=== PATIENT | female | born 1975 | race Caucasian/White ===

== ENCOUNTER 2018-05-13 19:07 | Emergency (ER) | payer OTHER ==
[2018-05-13 19:30] VITALS: BP 110/63
--- NOTE | 2018-05-13 19:47 | ED ---
Skin Complaint - HPI Summary HPI Summary: 43 yr old female with the complaint of rash to right anterior ankle. She was walking in weeds last weekend, and began to get rash, some blistering and then worsening over the past three days. She put high potency steroid on the are this morning due to the itching, and it made the area get darker in color. No fever or chills. No Pain weight bearing. - History of Current Complaint Chief Complaint: UCSkin Time Seen by Provider: 05/13/18 19:32 Stated Complaint: RT ANKLE CONCERN Hx Last Menstrual Period: 05/04/18 Pain Intensity: 5 - Allergy/Home Medications Allergies/Adverse Reactions: Allergies Allergy/AdvReac Type Severity Reaction Status Date / Time No Known Allergies Allergy Verified 05/13/18 19:20 PMH/Surg Hx/FS Hx/Imm Hx Endocrine/Hematology History: Reports: Hx Anticoagulant Therapy Denies: Hx Diabetes, Hx Thyroid Disease Cardiovascular History: Denies: Hx Congestive Heart Failure, Hx Deep Vein Thrombosis, Hx Hypertension , Hx Myocardial Infarction, Hx Pacemaker/ICD Respiratory History: Denies: Hx Asthma, Hx Chronic Obstructive Pulmonary Disease (COPD), Hx Lung Cancer, Hx Pneumonia, Hx Pulmonary Embolism GI History: Denies: Hx Gall Bladder Disease, Hx Gastrointestinal Bleed, Hx Ulcer, Hx Urosepsis History: Denies: Hx Kidney Stones, Hx Renal Disease Sensory History: Reports: Hx Contacts or Glasses - GLASSES Denies: Hx Hearing Aid Opthamlomology History: Reports: Hx Contacts or Glasses - GLASSES Neurological History: Denies: Hx Dementia, Hx Migraine, Hx Seizures, Hx Transient Ischemic Attacks (TIA) Psychiatric History: Reports: Hx Anxiety - HX OF, Hx Depression - HX OF Denies: Hx Panic Disorder, Hx Schizophrenia, Hx Bipolar Disorder - Cancer History Hx Chemotherapy: No Hx Radiation Therapy: No - Surgical History Surgery Procedure, Year, and Place: Jul 2007 . November 2004 . 2000 lt knee scope. 1989 T+A A CHILD. 1978 BMT X2 A CHILD, C-SPINE SURGERY 12/2015 Hx Anesthesia Reactions: No Infectious Disease History: No Infectious Disease History: Denies: Hx Hepatitis, Hx Human Immunodeficiency Virus (HIV), Traveled Outside the [place] in Last 30 Days - Family History Known Family History: Positive: Hypertension Negative: Cardiac Disease, Diabetes - Social History Occupation: Employed Full-time Lives: With Family Alcohol Use: Occasionally Substance Use Type: Reports: None Smoking Status (MU): Former Smoker Length of Time of Smoking/Using Tobacco: 50 YRS Have You Smoked in the Last Year: No Review of Systems Constitutional: Negative Positive: Rash All Other Systems Reviewed And Are Negative: Yes Physical Exam Triage Information Reviewed: Yes Vital Signs On Initial Exam: Initial Vitals Temp Pulse Resp BP Pulse Ox 97.8 F 68 18 110/63 99 05/13/18 19:23 05/13/18 19:23 05/13/18 19:23 05/13/18 19:23 05/13/18 19:23 Vital Signs Reviewed: Yes Appearance: Positive: Well-Appearing, No Pain Distress Skin: Positive: Other - wheeping, blistering rash anterior right ankle. Feet appear symmetric and ankles also in size. No joint effusion. She has hyperpigmentation of skin over the area of blister, but no cellulitis. No pus. Head/Face: Positive: Normal Head/Face Inspection Eyes: Positive: EOMI ENT: Positive: Normal ENT inspection Respiratory/Lung Sounds: Positive: Other - normal effort Cardiovascular: Positive: Pulses are Symmetrical in both Upper and Lower Extremities - DP pulse Abdomen Description: Negative: Distended Musculoskeletal: Positive: Strength/ROM Intact Neurological: Positive: Sensory/Motor Intact, Alert, Oriented to Person Place, Time, CN Intact II-III Psychiatric: Positive: Normal Diagnostics - Vital Signs Vital Signs Temp Pulse Resp BP Pulse Ox 05/13/18 19:23 97.8 F 68 18 110/63 99 - Laboratory Lab Statement: Any lab studies that have been ordered have been reviewed, and results considered in the medical decision making process. Course/Dx - Course Course Of Treatment: 43 yr old with allergic contact dermatitis. Plan medrol dose marc - Diagnoses Provider Diagnoses: Plant allergic contact dermatitis Discharge - Sign-Out/Discharge Documenting (check all that apply): Patient Departure All imaging exams completed and their final reports reviewed: No Studies - Discharge Plan Condition: Good Disposition: HOME Prescriptions: methylPREDNISolone [Medrol] 4 mg PO .SEE MARC INSTRUCTION #1 [id number] Patient Education Materials: Contact Dermatitis (ED), Poison Christal (ED) Referrals: Jessica Hoffman NP [Primary Care Provider] - 4 Days - Billing Disposition and Condition Condition: GOOD Disposition: Home
== END 2018-05-13 19:49 | disposition home or self-care (01) ==
LOC: UCCORT 19:07
DX: R51 Headache (principal); R11.2 Nausea with vomiting, unspecified; R50.9 Fever, unspecified
CPT/HCPCS: 99212; G0463

== ENCOUNTER 2019-07-25 08:46 | Emergency (ER) | payer OTHER ==
--- NOTE | 2019-07-25 09:15 | ED ---
Abdominal Pain/Female - HPI Summary HPI Summary: 44-year-old female with no significant past medical history presents to the emergency department today with chief complaint of rectal bleeding. She states she's had abdominal pain for months but her abdominal pain has gotten significantly worse in the last few days. She stated yesterday she started noticing bright red blood per rectum with 7 out of 10 abdominal pain. She states the pain is diffuse and all over her abdomen. She states she also noticed pus in her stool but reports no blood on the bathroom tissue with wiping after defecation. She states she's had about 10 bouts of diarrhea over the last 2 days and reports early satiety. Patient dorsal pain with defecation in the abdomen rather than the rectum. She denies any personal or family history of inflammatory bowel disease such as Crohn's or colitis, colorectal cancer, diverticulosis/diverticulitis. She does not take any blood thinners and has not complained of any lightheadedness, dizziness, chest pain, shortness breath, pain with urination. Patient denies fever or recent illness. Patient denies any identifiable precipitating factor. - History of Current Complaint Chief Complaint: EDGIBleed Stated Complaint: ABD PAIN/BLOOD IN STOOL PERPT Time Seen by Provider: 07/25/19 09:15 Hx Obtained From: Patient Hx Last Menstrual Period: 05/04/18 ?: No Onset/Duration: Gradual Onset, Lasting Days Timing: Constant Severity Initially: Moderate Severity Currently: Moderate Pain Intensity: 5 Pain Scale Used: 0-10 Numeric Location: Diffuse Radiates: No Character: Cramping Aggravating Factor(s): Food, Movement Associated Signs and Symptoms: Positive: Blood in Stool, Diarrhea. Negative: Diaphoresis, Fever, Chest Pain, Constipation, Urinary Symptoms, Vaginal Bleeding , Nausea, Vomiting Allergies/Adverse Reactions: Allergies Allergy/AdvReac Type Severity Reaction Status Date / Time No Known Allergies Allergy Verified 07/25/19 08:52 Home Medications: Home Medications Famotidine TAB* [Pepcid 20 MG TAB*] 20 mg PO BID 07/25/19 [History Confirmed 08/31] Naproxen Sodium [Aleve] 440 mg PO DAILY PRN 07/25/19 [History Confirmed 07/25/19 ] Norethindrone-Ethinyl Estrad [Ortho-Novum 7-7-7-28 Tablet] 1 each PO DAILY 07/25 [History Confirmed 07/25/19] PMH/Surg Hx/FS Hx/Imm Hx Endocrine/Hematology History: Reports: Hx Anticoagulant Therapy Denies: Hx Diabetes, Hx Thyroid Disease Cardiovascular History: Denies: Hx Congestive Heart Failure, Hx Deep Vein Thrombosis, Hx Hypertension , Hx Myocardial Infarction, Hx Pacemaker/ICD Respiratory History: Denies: Hx Asthma, Hx Chronic Obstructive Pulmonary Disease (COPD), Hx Lung Cancer, Hx Pneumonia, Hx Pulmonary Embolism GI History: Denies: Hx Gall Bladder Disease, Hx Gastrointestinal Bleed, Hx Ulcer, Hx Urosepsis History: Denies: Hx Kidney Stones, Hx Renal Disease Sensory History: Reports: Hx Contacts or Glasses - GLASSES Opthamlomology History: Reports: Hx Contacts or Glasses - GLASSES Neurological History: Denies: Hx Dementia, Hx Migraine, Hx Seizures, Hx Transient Ischemic Attacks (TIA) Psychiatric History: Reports: Hx Anxiety - HX OF, Hx Depression - HX OF Denies: Hx Panic Disorder, Hx Schizophrenia, Hx Bipolar Disorder - Cancer History Hx Chemotherapy: No Hx Radiation Therapy: No - Surgical History Surgery Procedure, Year, and Place: Jul 2007 . November 2004 . 2000 lt knee scope. 1989 T+A A CHILD. 1978 BMT X2 A CHILD, C-SPINE SURGERY 12/2015 Hx Anesthesia Reactions: No Infectious Disease History: No Infectious Disease History: Denies: Hx Hepatitis, Hx Human Immunodeficiency Virus (HIV), Traveled Outside the [place] in Last 30 Days - Family History Known Family History: Positive: Hypertension Negative: Cardiac Disease, Diabetes - Social History Alcohol Use: Occasionally Substance Use Type: Reports: None Smoking Status (MU): Former Smoker Length of Time of Smoking/Using Tobacco: 50 YRS Have You Smoked in the Last Year: No Review of Systems Constitutional: Negative Cardiovascular: Negative Respiratory: Negative Positive: Abdominal Pain. Negative: Vomiting, Diarrhea, Nausea Negative: burning, dysuria, flank pain, hematuria, pain Negative: Rash Psychological: Normal All Other Systems Reviewed And Are Negative: Yes Physical Exam Triage Information Reviewed: Yes Vital Signs On Initial Exam: Initial Vitals Temp Pulse Resp BP Pulse Ox 97.2 F 76 16 123/79 99 07/25/19 08:48 07/25/19 08:48 07/25/19 08:48 07/25/19 08:48 07/25/19 08:48 Vital Signs Reviewed: Yes Appearance: Positive: Well-Appearing, No Pain Distress, Well-Nourished, Obese Skin: Positive: Warm, Skin Color Reflects Adequate Perfusion Head/Face: Positive: Normal Head/Face Inspection Eyes: Positive: Normal, EOMI ENT: Positive: Hearing grossly normal Respiratory/Lung Sounds: Positive: Clear to Auscultation, Breath Sounds Present Cardiovascular: Positive: Normal, RRR, S1, S2 Abdomen Description: Positive: Soft, Other: - Patient has no visual signs of mass or ecchymosis to the abdomen. Patient has pain throughout the abdomen with palpation. Auscultation revealed normoactive bowel sounds. Negative psoas , Rovsing, obturator sign. No rebound tenderness at McBurney's point.. Negative: Nontender, CVA Tenderness (R), CVA Tenderness (L), Distended, Guarding , McBurney's Point Tenderness, Peritoneal Signs Psychiatric: Positive: Normal AVPU Assessment: Alert Procedures - Sedation Patient Received Moderate/Deep Sedation with Procedure: No Diagnostics - Vital Signs Vital Signs Temp Pulse Resp BP Pulse Ox 07/25/19 08:48 97.2 F 76 16 123/79 99 - Laboratory Result Diagrams: 07/25/19 09:51 07/25/19 09:47 Lab Statement: Any lab studies that have been ordered have been reviewed, and results considered in the medical decision making process. Abdominal Pain Fem Course/Dx - Course Course Of Treatment: 44-year-old female with no significant past medical history was evaluated in the emergency department today for the diarrhea. The patient was seen and examined. Laboratory studies and a CT with IV contrast was ordered for the abdomen and pelvis. Laboratory studies returned showing hemoglobin and hematocrit returned as 14.6 and 42 respectively. She has a platelet count of 160. Her labs indicate she is hemodynamically stable. A C-reactive protein returned at 9.27 which is elevated and this is expected due to her colitis. Coagulation studies were within normal limits and show the patient is at no increased risk of bleeding.CT of the abdomen and pelvis with IV contrast returned showing evidence of colonic inflammation suggestive of colitis. During her stay she was given 1 L of lactated Ringers. At around 12:00 PM the patient began developing increased pain and was given 650 mg of acetaminophen and she declined narcotic pain medication. 30 minutes after being given Tylenol patient endorses feeling much better and agrees to discharge. The patient was unable to produce a stool culture to be sent for analysis. She'll follow-up with gastroenterology in 2-3 days for further evaluation of her symptoms. She was discharged home with ciprofloxacin and metronidazole for possible bacterial colitis as well as tramadol to for 2 days for pain. - Diagnoses Differential Diagnosis: Positive: Appendicitis, Constipation, Diverticulitis, Gall Bladder Disease, Irritable Bowel Syndrome, Pancreatitis, Peptic Ulcer Disease, Other - Crohn's, colitis, infectious colitis Provider Diagnoses: Colitis Discharge ED - Sign-Out/Discharge Documenting (check all that apply): Patient Departure - Discharge Plan Condition: Stable Disposition: HOME Prescriptions: Ciprofloxacin TAB* [Cipro 500 MG TAB*] 500 mg PO BID #14 tab metroNIDAZOLE * [Flagyl] 500 mg PO BID #14 tablet traMADol TAB* [Ultram*] 50 mg PO Q6HR PRN #8 tab MDD 4 tabs PRN Reason: Pain Patient Education Materials: Low Fiber Diet (ED), Colitis (ED) Forms: *Work Release Referrals: Luci Rivers MD [Medical Doctor] - Jessica Hoffman NP [Primary Care Provider] - Zeynep JONES,Misyt Morris NP [Nurse Practitioner] - 2 Days Additional Instructions: You were seen in the emergency department today for colitis. Stool cultures were sent and you will be notified if these come back positive for bacteria. You will be sent home with a prescription for 2 antibiotics to be taken twice a day for 7 days to cover the possibility of bacterial origin. For relief of symptoms please stick to a low fiber diet until you were evaluated by gastroenterology. You should follow-up with a box car bracer for further evaluation and management of your symptoms. If You develop any new or worsening symptoms please return to the emergency Department immediately. Return to activity as tolerated. - Billing Disposition and Condition Condition: STABLE Disposition: Home - Attestation Statements Provider Attestation: I was available for consult. This patient was seen by the JEANETTE. The patient was not presented to, seen by, or examined by me. -Boo
[2019-07-25] MEDS ORDERED: Pantoprazole IV* 40 MG IV ONE (09:37)
[2019-07-25 09:58] LABS: Urine Appearance Clear; Urine Bacteria Absent (Absent); Urine Bilirubin Negative (Negative); Urine Blood 2+ (Negative); Urine Color Yellow; Urine Glucose Negative (Negative); Urine Ketones Negative (Negative); Urine Nitrite Negative (Negative); Urine Protein Negative (Negative); Urine Red Blood Cell 1+(3-5/hpf) (Absent); Urine Specific Gravity 1.015 (1.010-1.030); Urine Squamous Epithelial Cell Present (Absent); Urine Urobilinogen Negative (Negative); Urine White Blood Cell Trace(0-5/hpf) (Absent)
[2019-07-25 10:00] LABS: ABS Eosinophils 0.1 10^3/ul (0-0.6); ABS Lymphocytes 1.7 10^3/ul (1.0-4.8); ABS Monocytes 0.6 10^3/ul (0-0.8); ABS Neutrophils 3.8 10^3/ul (1.5-7.7); Eosinophil % 1.1 %; Hematocrit 42 % (35-47); Hemoglobin 14.6 g/dL (12.0-16.0); Lymphocyte % 27.2 %; Mean Corpuscular HGB Conc 35 g/dL (31-36); Mean Corpuscular Hemoglobin 33 pg (27-31); Mean Corpuscular Volume 94 fL (80-97); Mean Platelet Volume 8.8 fL (7.4-10.4); Nucleated Red Blood Cells % 0.1; Platelet Count 160 10^3/uL (150-450); Red Blood Count 4.45 10^6 /uL (3.70-4.87); Red Cell Distribution Width 13 % (10-15); White Blood Count 6.2 10^3/uL (3.5-10.8)
[2019-07-25] MEDS ORDERED: Lactated Ringers 1000 ML Bag* 1,000 ML IV SCH ×2 (10:00)
[2019-07-25 10:08] LABS: Activated Partial Thrombo Time 32.8 seconds (26.0-38.0); INR 0.99 (0.82-1.09)
[2019-07-25 10:19] LABS: ALT 10 U/L (7-52); AST 11 U/L (13-39); Albumin/Globulin Ratio 1.8 (1-3); Alkaline Phosphatase 33 U/L (34-104); Anion Gap 5 mmol/L (2-11); BUN/Creatinine Ratio 8.5 (8-20); Blood Urea Nitrogen 7 mg/dL (6-24); C Reactive Protein 9.27 mg/L (<8.01); CO2 Carbon Dioxide 26 mmol/L (22-32); Calcium 9.2 mg/dL (8.6-10.3); Chloride 109 mmol/L (101-111); EGFR African American 91.6 (>60); EGFR Non-African American 75.7 (>60); Globulin 2.2 g/dL (2-4); Glucose 113 mg/dL (70-100); Potassium 4.8 mmol/L (3.5-5.0); Sodium 140 mmol/L (135-145); Total Protein 6.2 g/dL (6.4-8.9)
--- OUTSIDE RECORDS SUMMARY | 2019-07-25 10:32 | XMS REPORT | Continuity of Care Document ---
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 Medicine Problems Active Problems Provider Date Anxiety state Rachel Ocasio M.D., FACP Onset: 06/01/2011 Social History Type Date Description Comments Sex Unknown ETOH Use Drinks 2 Alcoholic Beverages Per Week Tobacco Use Start: Unknown End: Patient is a former quit 04/25 Document: Unknown smoker 06/23/13 - .Nurse Note Recreational Drug Use Denies Drug Use Smoking Status Reviewed: 07/24/19 Patient is a former quit 04/25 Document: smoker 06/23/13 - .Nurse Note Allergies, Adverse Reactions, Alerts Active Allergies Reaction Severity Comments Date No Known Drug Allergy 06/17/2010 Medications Active Medications SIG Qnty Indications Ordering Provider Date Famotidine 1 by mouth twice 30tabs R10.84 Jessica Hoffman, 07/24/2019 20mg Tablets a day N.P. Ortho-Cept (28) 1 by mouth every 28tabs Jessica Hoffman, 09/25/2015 day N.P. 0.15-30mg-mcg Tablets Aleve 2 by mouth a day Unknown 220mg Capsules as needed Immunizations CPT Code Status Date Vaccine Lot # [id number] Given 05/26/2018 Influenza Virus Vaccine, Quadrivalent, Split, Preservative Free [id number] Given 06/23/2013 Flu Vaccine Split Virus Preservative Free For [id number] Indiv 3Yr Older [id number] Given 06/18/2010 Influenza Virus 3Yrs & Over Vital Signs Date Vital Result Comment 07/24/2019 2:13pm Height 69 inches 5'9" Weight 221.12 lb Heart Rate 66 /min BP Systolic 124 mmHg BP Diastolic 70 mmHg Body Temperature 98.4 F O2 % BldC Oximetry 96 % BMI (Body Mass Index) 32.7 kg/m2 10/04/2018 2:30pm Height 69 inches 5'9" Weight 23.50 lb Heart Rate 67 /min BP Systolic 121 mmHg BP Diastolic 79 mmHg Body Temperature 97.9 F O2 % BldC Oximetry 97 % BMI (Body Mass Index) 3.5 kg/m2 Results Description No Information Available Procedures Date Code Description Status 11/02/2018 [id number] Mammogram Completed 12/24/2016 [id number] Mammogram Completed 04/30/2016 [id number] Mammogram Completed 10/11/2015 [id number] Mammogram Completed Medical Devices Description No Information Available Encounters Description No Information Available Assessments Date Code Description Provider 07/24/2019 R10.84 Generalized abdominal pain Jessica Hoffman N.P. Plan of Treatment Future Appointment(s):10/06/2019 2:20 pm - Jessica Hoffman N.P. at [facility] Internal Medicine - [facility]07/24/2019 - Jessica Hoffman N.P.R10.84 Generalized abdominal painNew Medication:Famotidine 20 mg - 1 by mouth twice a dayComments:You are having symptoms consistent with reflux disease. I have prescribed Famotidine 20 mg. Take 1 tablet twice daily. Avoid acidic, greasy, and spicy foods. Coffee and alcohol are irritants as well. 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 Sent Referred for evaluation and treatment. Thank you for seeing this pleasant patient. [address] [place] [address] [phone]
[2019-07-25] MEDS ORDERED: Iohexol 300* (CONTRAST) 10 ML SDV IV ONE (10:56)
[2019-07-25] MEDS ORDERED: Acetaminophen TAB* 325 MG PO ONE (12:03)
[2019-07-25 14:08] VITALS: BP 128/85
== END 2019-07-25 14:00 | disposition home or self-care (01) ==
LOC: ED 08:46
DX: K52.9 Noninfective gastroenteritis and colitis, unspecified (principal); R10.84 Generalized abdominal pain; Z79.01 Long term (current) use of anticoagulants; Z87.891 Personal history of nicotine dependence
CPT/HCPCS: 36415; 74177; 80053; 81003; 81015; 82272; 83605; 83690; 83735; 85025; 85610; 85730; 86140; 87086; 96361; 96374; 99283; A9270-GY; Q9967

== ENCOUNTER 2019-07-31 18:20 | Emergency (ER) | payer OTHER ==
--- OUTSIDE RECORDS SUMMARY | 2019-07-31 18:32 | XMS REPORT | Continuity of Care Document ---
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 Allergies, Adverse Reactions, Alerts Active Allergies Reaction Severity Comments Date No Known Drug Allergy 06/17/2010 Medications Active Medications SIG Qnty Indications Ordering Provider Date Nortrel 7 Every Day Unknown 07/25/2019 0.5/0.75/1-35 mg-mcg Tablets Ciprofloxacin HCL Twice Daily 14tabs Unknown 07/25/2019 500mg Tablets Metronidazole Twice Daily 14tabs Unknown 07/25/2019 500mg Tablets Tramadol HCL Every 6 Hours 8tabs Unknown 07/25/2019 50mg Tablets Famotidine 1 by mouth 30tabs R10.84 Jessica Hoffman, 07/24/2019 20mg Tablets twice a day N.P. Immunizations CPT Code Status Date Vaccine Lot # [id number] Given 05/26/2018 Influenza Virus Vaccine, Quadrivalent, Split, Preservative Free 58267 Given 06/23/2013 Flu Vaccine Split Virus Preservative Free For [id number] Indiv 3Yr Older [id number] Given 06/18/2010 Influenza Virus 3Yrs & Over Vital Signs Date Vital Result Comment 07/26/2019 2:32pm Height 69 inches 5'9" Weight 220.00 lb Heart Rate 77 /min BP Systolic 117 mmHg BP Diastolic 75 mmHg O2 % BldC Oximetry 98 % BMI (Body Mass Index) 32.5 kg/m2 07/24/2019 2:13pm Height 69 inches 5'9" Weight 221.12 lb Heart Rate 66 /min BP Systolic 124 mmHg BP Diastolic 70 mmHg Body Temperature 98.4 F O2 % BldC Oximetry 96 % BMI (Body Mass Index) 32.7 kg/m2 Results Test Acquired Date Facility Test Result H/L Range Note Inr/Protime 07/25/2019 [facility] Inr 0.99 Normal 0.82-1.[address] [place] [address] [phone] Laboratory test 07/25/2019 [facility] Partial 32.8 Normal 26.0 -38.[address] [place] [address] PTT [phone] Lactic Acid 1.3 mmol/L Normal 0.5-2.0 2 Urinalysis Profile 07/25/2019 [facility] Urine Color Yellow [address] [place] [address] [phone] Urine Appearance Clear Urine Specific Gary 1.015 Normal 1.010-1.030 Urine pH 5.0 Normal 5-9 Urine Urobilinogen Negative Negative Urine Ketones Negative Negative Urine Protein Negative Negative Urine Leukocytes Trace Abnormal Negative Urine Blood 2+ Abnormal Negative Urine Nitrite Negative Negative Urine Bilirubin Negative Negative Urine Glucose Negative Negative Urine White Blood Cell Trace(0-5/hpf) Absent Urine Red Blood Cell 1+(3-5/hpf) Abnormal Absent Urine Bacteria Absent Absent Urine Squamous Epithelial Cell Present Abnormal Absent CBC Auto 07/25/2019 [facility] White Blood 6.2 10^3/uL Normal 3.5-10.[address] [place] [address] [phone] Red Blood Count 4.45 10^6/uL Normal 3.70-4.87 Hemoglobin 14.6 g/dL Normal 12.0-16.0 Hematocrit 42 % Normal 35-47 Mean Corpuscular Volume 94 fL Normal 80-97 Mean Corpuscular Hemoglobin 33 pg High 27-31 Mean Corpuscular HGB Conc 35 g/dL Normal 31-36 Red Cell Distribution Width 13 % Normal 10-15 Platelet Count 160 10^3/uL Normal 150-450 Mean Platelet Volume 8.8 fL Normal 7.4-10.4 Abs Neutrophils 3.8 10^3/uL Normal 1.5-7.7 Abs Lymphocytes 1.7 10^3/uL Normal 1.0-4.8 Abs Monocytes 0.6 10^3/uL Normal 0-0.8 Abs Eosinophils 0.1 10^3/uL Normal 0-0.6 Abs Basophils 0.0 10^3/uL Normal 0-0.2 Abs Nucleated RBC 0.0 10^3/uL Granulocyte % 60.9 % Lymphocyte % 27.2 % Monocyte % 10.3 % Eosinophil % 1.1 % Basophil % 0.5 % Nucleated Red Blood Cells % 0.1 Comp Metabolic 07/25/2019 [facility] Sodium 140 mmol/L Normal 135-145 Panel [address] [place] [address] [phone] Potassium 4.8 mmol/L Normal 3.5-5.0 Chloride 109 mmol/L Normal 101-111 Co2 Carbon Dioxide 26 mmol/L Normal 22-32 Anion Gap 5 mmol/L Normal 2-11 Glucose 113 mg/dL High 70-100 Blood Urea Nitrogen 7 mg/dL Normal 6-24 Creatinine 0.82 mg/dL Normal 0.51-0.95 BUN/Creatinine Ratio 8.5 Normal 8-20 Calcium 9.2 mg/dL Normal 8.6-10.3 Total Protein 6.2 g/dL Low 6.4-8.9 Albumin 4.0 g/dL Normal 3.2-5.2 Globulin 2.2 g/dL Normal 2-4 Albumin/Globulin Ratio 1.8 Normal 1-3 Total Bilirubin 0.30 mg/dL Normal 0.2-1.0 Alkaline Phosphatase 33 U/L Low 34-104 Alt 10 U/L Normal 7-52 Ast 11 U/L Low 13-39 Egfr Non- 75.7 >60 Egfr 91.6 >60 3 Laboratory test 07/25/2019 [facility] Magnesium 2.0 mg/dL Normal 1.9-2.7 finding [address] [place] [address] [phone] Lipase < 10 U/L Low 11.0-82.0 C Reactive Protein 9.27 mg/L High <8.01 Stool Occult Blood 07/25/2019 [facility] Stool Occult SEE RESULT [address] Blood, [place] [address] [phone] Urine Culture And 07/25/2019 [facility] Urine Culture SEE RESULT [address] [place] [address] [phone] 1 Standard intensity warfarin therapeutic range: 2.0-3.0 High intensity warfarin therapeutic range: 2.5-3.5 2 [place] Severe Sepsis and Septic Shock Management Bundle Measure requires all lactic acids initially measuring >2.0 mmol/L be repeated. 3 Because ethnic data is not always readily available, this report includes an eGFR for both -Americans and non- Americans. The National Kidney Disease Education Program (NKDEP) does not endorse the use of the MDRD equation for patients that are not between the ages of 18 and 70, are , have extremes of body size, muscle mass, or nutritional status, or are non- or non-. According to the National Kidney Foundation, irrespective of diagnosis, the stage of the disease is based on the level of kidney function: Stage Description GFR(mL/min/1.73 m(2)) 1 Kidney damage with normal or decreased GFR 90 2 Kidney damage with mild decrease in GFR 60-89 3 Moderate decrease in GFR 30-59 4 Severe decrease in GFR 15-29 5 Kidney failure <15 (or dialysis) 4 SEE RESULT BELOW Name: MAYELA SHANKS : [address]: Aleta Stafford MD Acct: [id number] Unit: [id number] AGE: 44 Location: ED Re07/25/19 SEX: F Status: DEP ER SPEC: [id number] AYALA: 07/25/[address] [facility] [address]: Alexsander WALSH REQ: [id number] RECD: 07/25/19 STATUS:ISAIAS PRADO DR: Aleta Hoffman ME[employer]SEM[employer]ER _ SOURCE: STOOL SPDESC: ORDERED: Occult Bl, Diag Procedure Result Reported Site Stool Occult Blood (1) Final 07/25/19- 1116 ML Stool Occult Blood Negative Collection Date (1) 07/25/19 NO "VISIBLE SPECIMEN" ON CARD SUBMITTED. * ML - Main Lab . END OF REPORT DEPARTMENT OF PATHOLOGY, [address] [place] [address] Lalit Thomas M.D. 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 END OF REPORT DEPARTMENT OF PATHOLOGY, [address] [place] [address] Lalit Thomas M.D. Director [facility] # [id number] Procedures Date Code Description Status 11/02/2018 [id number] Mammogram Completed 12/24/2016 [id number] Mammogram Completed 04/30/2016 [id number] Mammogram Completed 10/11/2015 [id number] Mammogram Completed Medical Devices Description No Information Available Encounters Description No Information Available Assessments Date Code Description Provider 07/24/2019 R10.84 Generalized abdominal pain Jessica Hoffman N.P. Plan of Treatment Future Appointment(s):08/15/2019 8:15 am - Misty Adhikari NP at [facility] Hkebfsaqemybzsok79/24/2020 2:20 pm - Jessica Hoffman NChucho at [facility] Internal Medicine - [facility]ob07/24/2019 - Jessica Hoffman NChuchoR10.84 Generalized abdominal painNew Medication:Famotidine 20 mg - [...] GI specialist for further evaluation.Referral:Misty Adhikari NP, Family/[employer]CH[employer]NCE ASSEMBLER Functional Status Description No Information Available Mental Status Description No Information Available Referrals Refer to Reason for Referral Status Appt Date Misty Adhikari NP Patient with abdominal pain, reflux and diarrhea. Sent Referred for evaluation and treatment. Thank you for seeing this pleasant patient. [address] [place] [address] [phone]
--- OUTSIDE RECORDS SUMMARY | 2019-07-31 18:32 | XMS REPORT | Continuity of Care Document ---
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 [phone] Medicine Problems Active Problems Provider Date Anxiety state Rachel Ocasio M.D., FACP Onset: 06/01/2011 Colitis Misty Adhikari NP Onset: 07/26/2019 Social History Type Date Description Comments Sex Unknown Tobacco Use Start: Unknown Former Cigarette Smoker End: Unknown Smoking Status Reviewed: 07/31/19 Former Cigarette Smoker ETOH Use Drinks Alcoholic [...] SIG Qnty Indications Ordering Provider Date Nortrel Every Day Unknown 07/25/2019 0.5/0.75/1-35 mg-mcg Tablets Ciprofloxacin HCL Twice Daily 14tabs Unknown 07/25/2019 500mg Tablets Metronidazole Twice Daily 14tabs Unknown 07/25/2019 500mg Tablets Tramadol HCL Every 6 Hours 8tabs Unknown 07/25/2019 50mg Tablets Famotidine 1 by mouth 30tabs R10.84 Jessica Hoffman, 07/24/2019 20mg Tablets twice a day N.P. Immunizations CPT Code Status Date Vaccine Lot # [id number] Given 05/26/2018 Influenza Virus Vaccine, Quadrivalent, Split, Preservative Free 54648 Given 06/23/2013 Flu Vaccine Split Virus Preservative Free For [id number] Indiv 3Yr Older 65533 Given 06/18/2010 Influenza Virus 3Yrs & Over Vital Signs Date Vital Result Comment 07/31/2019 2:02pm Height 69 inches 5'9" Weight 220.00 lb Heart Rate 75 /min BP Systolic 113 mmHg BP Diastolic 68 mmHg Body Temperature 97.5 F O2 % BldC Oximetry 97 % BMI (Body Mass Index) 32.5 kg/m2 07/26/2019 2:32pm Height 69 inches 5'9" Weight 220.00 lb Heart Rate 77 /min BP Systolic 117 mmHg BP Diastolic 75 mmHg O2 % BldC Oximetry 98 % BMI (Body Mass Index) 32.5 kg/m2 Results Test Acquired Date Facility Test Result H/L Range Note Inr/Protime 07/25/2019 [facility] Inr 0.99 Normal 0.82-1.[address] [place] [address] [phone] Laboratory test 07/25/2019 [facility] Partial 32.8 Normal 26.0 -38.[address] [address] PTT [phone] Lactic Acid 1.3 mmol/L Normal 0.5-2.0 2 Urinalysis Profile 07/25/2019 [facility] Urine Color Yellow [address] [place] [address] [phone] Urine Appearance Clear Urine Specific [place] 1.015 Normal 1.010-1.030 Urine pH 5.0 Normal [...] Cell Present Abnormal Absent CBC Auto 07/25/2019 [facility] White Blood 6.2 10^3/uL Normal 3.5-10.[address] [place] [address] [phone] Red Blood Count 4.45 10^6/uL Normal 3.70-4.87 [...] Blood Cells % 0.1 Comp Metabolic 07/25/2019 [facility] Sodium 140 mmol/L Normal 135-[address] [place] [id number] [phone] Potassium 4.8 mmol/L Normal 3.5-5.0 Chloride 109 [...] Egfr 91.6 >60 3 Laboratory test 07/25/2019 [facility] Magnesium 2.0 mg/dL Normal 1.9-2.[address] [place] [address] [phone] Lipase < 10 U/L Low 11.0-82.0 C Reactive Protein 9.27 mg/L High <8.01 Stool Occult Blood 07/25/2019 [facility] Stool Occult SEE RESULT [address] Blood, [place] [address] [phone] Urine Culture And 07/25/2019 [facility] Urine Culture SEE RESULT [address] [place] [address] [phone] 1 Standard intensity warfarin therapeutic range: 2.0-3.0 [...] [address]: Aleta Stafford MD Acct: [id number] Unit: [id number] AGE: 44 Location: ED Re07/25/19 SEX: F Status: DEP ER SPEC: [id number] AYALA: 07/25/19 [facility] DR: Alexsander WALSH REQ: [id number] RECD: 07/25/19 STATUS:ISAIAS PRADO DR: Aleta Hoffman [employer] _ SOURCE: STOOL SPDESC: ORDERED: Occult Bl, Diag Procedure Result Reported Site Stool Occult Blood (1) Final 07/25/19- 1116 ML Stool Occult Blood Negative Collection Date (1) 07/25/19 NO "VISIBLE SPECIMEN" ON CARD SUBMITTED. * ML - Main Lab . END OF REPORT DEPARTMENT OF PATHOLOGY, [address] [place] [address] Lalit Thomas M.D. Director [facility] # [id number] 5 SEE RESULT BELOW Name: MAYELA SHANKS : [address]: Aleta Stafford MD Acct: [id number] Unit: [id number] AGE: 44 Location: ED Re07/25/19 SEX: F Status: DEP ER SPEC: [id number] AYALA: 07/25/[address]: Alexsander WALSH REQ: [id number] RECD: 07/25/19 STATUS:COMP OTHR DR: Aleta Hoffman [employer] _ SOURCE: URINE SPDESC: ORDERED: Urine Culture Procedure Result Reported Site Urine Culture Final 07/26/19- 0858 ML No growth of clinically significant organisms * ML - Main Lab . END OF REPORT DEPARTMENT OF PATHOLOGY, [address] [place] [address] Lalit Thomas M.D. Director [facility] # [id number] Procedures Date Code Description Status 11/02/2018 [id number] Mammogram Completed 12/24/2016 [id number] Mammogram Completed 04/30/2016 [id number] Mammogram Completed 10/11/2015 [id number] Mammogram Completed Medical Devices Description No Information Available Encounters Type Date Location Provider Dx Diagnosis Office Visit 07/24/2019 [facility] Internal Jessica Hoffman, R10.84 Generalized 2:00p Medicine - [facility] N.P. 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 Plan of Treatment Future Appointment(s):08/15/2019 8:15 am - Misty Adhikari NP at [facility] Rpmftjncchjxtnkn15/24/2020 2:20 pm - Jessica Hoffman N.P. at [facility] Internal Medicine - [facility] Functional Status Description No Information Available Mental Status Description No Information Available Referrals Refer to Reason for Referral Status Appt Misty Claudio NP Patient with abdominal pain, reflux and diarrhea. Sent Referred for evaluation and treatment. Thank you for seeing this pleasant patient. [address] [place] [id number] [phone]
[2019-07-31] MEDS ORDERED: Nystatin OINT* 15 GM TOPICAL SCH (23:45)
[2019-08-01] MEDS ORDERED: Acetaminophen TAB* 325 MG PO ONE (00:01)
--- NOTE | 2019-08-01 00:01 | ED ---
Abdominal Pain/Female - HPI Summary HPI Summary: Patient with history of left lower quadrant pain 1 month was seen 1 week ago at this ED and diagnosed with colitis, and now complains of persistent left lower quadrant pain despite 1 week of Cipro and Flagyl. Patient has been evaluated twice by GI since visit to ED, GI advised patient to come to the ED due to elevated WBC on routine labs. Patient also states associated fever intermittently up to 102, perirectal rash 2 days. Denies cough, sore throat, CP, SOB, N/V, change in urine. Medical history is none. - History of Current Complaint Chief Complaint: EDGeneral Stated Complaint: ABNORMAL LABS PER PT Time Seen by Provider: 07/31/19 22:55 Hx Obtained From: Patient Hx Last Menstrual Period: 05/04/18 Onset/Duration: Gradual Onset, Lasting Weeks Timing: Constant Severity Initially: Severe Severity Currently: Severe Pain Intensity: 8 Pain Scale Used: 0-10 Numeric Location: Discrete At: LLQ Radiates: No Character: Sharp Aggravating Factor(s): Nothing Alleviating Factor(s): Nothing Allergies/Adverse Reactions: Allergies Allergy/AdvReac Type Severity Reaction Status Date / Time No Known Allergies Allergy Verified 07/25/19 08:52 PMH/Surg Hx/FS Hx/Imm Hx Endocrine/Hematology History: Reports: Hx Anticoagulant Therapy Denies: Hx Diabetes, Hx Thyroid Disease Cardiovascular History: Denies: Hx Congestive Heart Failure, Hx Deep Vein Thrombosis, Hx Hypertension , Hx Myocardial Infarction, Hx Pacemaker/ICD Respiratory History: Denies: Hx Asthma, Hx Chronic Obstructive Pulmonary Disease (COPD), Hx Lung Cancer, Hx Pneumonia, Hx Pulmonary Embolism GI History: Denies: Hx Gall Bladder Disease, Hx Gastrointestinal Bleed, Hx Ulcer, Hx Urosepsis History: Denies: Hx Kidney Stones, Hx Renal Disease Sensory History: Reports: Hx Contacts or Glasses - GLASSES Opthamlomology History: Reports: Hx Contacts or Glasses - GLASSES Neurological History: Denies: Hx Dementia, Hx Migraine, Hx Seizures, Hx Transient Ischemic Attacks (TIA) Psychiatric History: Reports: Hx Anxiety - HX OF, Hx Depression - HX OF Denies: Hx Panic Disorder, Hx Schizophrenia, Hx Bipolar Disorder - Cancer History Hx Chemotherapy: No Hx Radiation Therapy: No - Surgical History Surgery Procedure, Year, and Place: Jul 2007 . November 2004 . 2000 lt knee scope. 1989 T+A A CHILD. 1978 BMT X2 A CHILD, C-SPINE SURGERY 12/2015 Hx Anesthesia Reactions: No Infectious Disease History: No Infectious Disease History: Denies: Hx Hepatitis, Hx Human Immunodeficiency Virus (HIV), Traveled Outside the [place] in Last 30 Days - Family History Known Family History: Positive: Hypertension Negative: Cardiac Disease, Diabetes - Social History Alcohol Use: Occasionally Substance Use Type: Reports: None Smoking Status (MU): Former Smoker Length of Time of Smoking/Using Tobacco: 50 YRS Have You Smoked in the Last Year: No Review of Systems Constitutional: Negative Eyes: Negative ENT: Negative Cardiovascular: Negative Respiratory: Negative Positive: Abdominal Pain Genitourinary: Negative Musculoskeletal: Negative Positive: Rash Neurological: Negative Psychological: Normal All Other Systems Reviewed And Are Negative: Yes Physical Exam - Summary Physical Exam Summary: Perirectal erythema extending to inferior portion of vaginal labia. Consistent with yeast infection. Abdomen soft nontender in all quadrants. Triage Information Reviewed: Yes Vital Signs On Initial Exam: Initial Vitals Temp Pulse Resp BP Pulse Ox 97.8 F 84 16 130/87 98 07/31/19 18:22 07/31/19 18:22 07/31/19 18:22 07/31/19 18:22 07/31/19 18:22 Vital Signs Reviewed: Yes Appearance: Positive: Well-Appearing Skin: Positive: Warm Head/Face: Positive: Normal Head/Face Inspection Eyes: Positive: Normal Neck: Positive: Supple Respiratory/Lung Sounds: Positive: Clear to Auscultation Cardiovascular: Positive: Normal Abdomen Description: Positive: Nontender Musculoskeletal: Positive: Normal Neurological: Positive: Normal Psychiatric: Positive: Normal AVPU Assessment: Alert - Holmes Coma Scale Best Eye Response: 4 - Spontaneous Best Motor Response: 6 - Obeys Commands Best Verbal Response: 5 - Oriented Coma Scale Total: 15 Procedures - Sedation Patient Received Moderate/Deep Sedation with Procedure: No Diagnostics - Vital Signs Vital Signs Temp Pulse Resp BP Pulse Ox 07/31/19 18:22 97.8 F 84 16 130/87 98 - Laboratory Lab Statement: Any lab studies that have been ordered have been reviewed, and results considered in the medical decision making process. Abdominal Pain Fem Course/Dx - Course Course Of Treatment: Patient with history of left lower quadrant pain 1 month was seen 1 week ago at this ED and diagnosed with colitis, and now complains of persistent left lower quadrant pain despite 1 week of Cipro and Flagyl. Patient has been evaluated twice by GI since visit to ED, GI advised patient to come to the ED due to elevated WBC on routine labs. Patient also states associated fever intermittently up to 102, perirectal rash 2 days. Denies cough, sore throat, CP, SOB, N/V, change in urine. Medical history is none. Vital signs within normal limits. WBC 14.5 elevated from prior visit. Labs otherwise unremarkable. Urine is negative. CT abdomen and pelvis positive only for significant stool burden, no findings of colitis. Patient's pain improved with Tylenol. Advised patient to continue taking Tylenol as directed and follow-up with GI. Nystatin cream twice a day for yeast infection - Diagnoses Provider Diagnoses: Abdominal pain, Constipation, Yeast infection Discharge ED - Sign-Out/Discharge Documenting (check all that apply): Patient Departure - Discharge Plan Condition: Stable Disposition: HOME Patient Education Materials: Constipation (ED), Abdominal Pain (ED) Referrals: Jessica Hoffman NP [Primary Care Provider] - Additional Instructions: Follow-up with your GI doctor for further management of constipation. Take Tylenol for abdominal pain. Continue to take antibiotics for colitis until finished. Apply nystatin cream to rash 3 times a day until resolved. Return to the ED for any new or worsening symptoms. - Billing Disposition and Condition Condition: STABLE Disposition: Home
[2019-08-01] MEDS ORDERED: Iohexol 300* (CONTRAST) 10 ML SDV IV ONE (00:30)
[2019-08-01 02:34] VITALS: BP 131/67
== END 2019-08-01 02:33 | disposition home or self-care (01) ==
LOC: ED 18:20
DX: R10.32 Left lower quadrant pain (principal); K59.00 Constipation, unspecified; B37.89 Other sites of candidiasis
CPT/HCPCS: 74177; 99282; A9270-GY; Q9967